=== PATIENT | female | born 1985 | race Caucasian/White ===

== ENCOUNTER 2016-10-01 15:02 | Emergency (ER) | payer OTHER ==
--- NOTE | 2016-10-01 15:21 | UC ---
Throat Pain/Nasal Brock HPI - HPI Summary HPI Summary: 31 year old female presents with complains of sinus pressure, congestion and sore throat - History of Current Complaint Stated Complaint: SORE THROAT,[place] GL[place]S,SINUS PRESSURE Time Seen by Provider: 10/01/16 15:21 Hx Last Menstrual Period: 08/24/14 - Allergies/Home Medications Allergies/Adverse Reactions: Allergies Allergy/AdvReac Type Severity Reaction Status Date / Time No Known Allergies Allergy Verified 10/01/16 15:23 PMH/Surg Hx/FS Hx/Imm Hx - Surgical History Surgical History: None - Social History Alcohol Use: None Substance Use Type: None Smoking Status (MU): Light Every Day Tobacco Smoker Type: Cigarettes Amount Used/How Often: 5 cigarettes daily Household Exposure Type: Cigarettes Review of Systems Constitutional: Negative Skin: Negative Eyes: Negative ENT: Sore Throat, Nasal Discharge, Sinus Congestion, Sinus Pain/Tenderness Respiratory: Negative Cardiovascular: Negative Gastrointestinal: Negative Genitourinary: Negative Motor: Negative Neurovascular: Negative Musculoskeletal: Negative Neurological: Negative Psychological: Negative All Other Systems Reviewed And Are Negative: Yes Physical Exam Triage Information Reviewed: Yes Eye Exam: Normal ENT Exam: Normal ENT: Positive: Pharyngeal erythema, Nasal congestion, Nasal drainage Dental Exam: Normal Neck exam: Normal Neck: Positive: 1 Respiratory Exam: Normal Cardiovascular Exam: Normal Abdominal Exam: Normal Musculoskeletal Exam: Normal Neurological Exam: Normal Psychological Exam: Normal Skin Exam: Normal Throat Pain/Nasal Course/Dx - Differential Dx/Diagnosis Provider Diagnoses: sinusitis Discharge - Discharge Plan Condition: Stable Disposition: HOME Prescriptions: Amoxicillin CAP* [Amoxicillin 500 MG CAP*] 500 mg PO TID #30 cap LoraTADine TAB(NF) [Claritin 10 MG TAB(NF)] 10 mg PO DAILY #30 tab Magic M W2 Alcon/Maal/Nyst/Lido* 15 ml SWISH SPIT QID #120 ml Patient Education Materials: Pharyngitis (ED), Sinusitis (ED) Referrals: Alayna Aquino PA [Primary Care Provider] - If Needed
[2016-10-01 15:25] VITALS: BP 127/57
== END 2016-10-01 15:47 | disposition home or self-care (01) ==
LOC: UCCORT 15:02
DX: J32.9 Chronic sinusitis, unspecified (principal)
CPT/HCPCS: 87651; 99212; G0463

== ENCOUNTER 2016-10-22 12:07 | Emergency (ER) | payer OTHER ==
[2016-10-22 12:35] VITALS: BP 118/62
[2016-10-22] MEDS ORDERED: Azithromycin TAB* 250 MG PO ONE (13:32)
[2016-10-22] MEDS ORDERED: cefTRIAXone VIAL(*) 250 MG VIAL IM ONE (13:33)
--- NOTE | 2016-10-22 13:39 | UC ---
Abdominal Pain Female HPI - HPI Summary HPI Summary: 31 y/o female with c/o- - multiple month h/o intermittent nausea/ vomiting, loose stools. intermittent symptoms with several days of normal BMs, no N/V. Patient has appointment to see GI physician in 2 days and is being worked up for GB disease. no fever, chills. + bloating/ abdominal pressure dark stools - recently found out boyfriend was cheating on her- would like HIV testing as well as STD treatment - increased vaginal discharge- changes between watery/ thick or sometimes minimal amounts. No itchy/ burning urination. No pain. recent ABX use ~ 2 weeks ago - History of Current Complaint Chief Complaint: UCAbdominalPain Stated Complaint: ABD PAIN,NAUSEA Time Seen by Provider: 10/22/16 12:19 Hx Obtained From: Patient Hx Last Menstrual Period: 10/08/16 Onset/Duration: Lasting Weeks Severity Initially: Mild Severity Currently: Mild Pain Scale Used: 0-10 Numeric Location: Diffuse - abdominal pain Aggravating Factor(s): Nothing Alleviating Factor(s): Nothing Associated Signs and Symptoms: Positive: Vaginal Discharge, Nausea, Vomiting, Diarrhea Allergies/Adverse Reactions: Allergies Allergy/AdvReac Type Severity Reaction Status Date / Time No Known Allergies Allergy Verified 10/22/16 12:15 PMH/Surg Hx/FS Hx/Imm Hx Previously Healthy: Yes - Surgical History Surgical History: None - Social History Alcohol Use: None Substance Use Type: Marijuana Substance Use Comment - Amount & Last Used: Daily Smoking Status (MU): Light Every Day Tobacco Smoker Type: Cigarettes Amount Used/How Often: 10 cigarettes daily Household Exposure Type: Cigarettes - Immunization History Most Recent Influenza Vaccination: NONE 2015 Most Recent Tetanus Shot: UTD Review of Systems Constitutional: Negative Skin: Negative Eyes: Negative ENT: Negative Respiratory: Negative Cardiovascular: Negative Gastrointestinal: Abdominal Pain, Vomiting, Diarrhea, Nausea Genitourinary: Negative Motor: Negative Neurovascular: Negative Musculoskeletal: Negative Neurological: Negative Psychological: Negative All Other Systems Reviewed And Are Negative: Yes Physical Exam Triage Information Reviewed: Yes Appearance: Well-Appearing, No Pain Distress, Well-Nourished Vital Signs: Initial Vital Signs Temp 98.5 F 10/22/16 12:15 Pulse 62 10/22/16 12:15 Resp 18 10/22/16 12:15 BP 118/62 10/22/16 12:15 Pulse Ox 99 08/01/17 12:15 Abdomen Description: Positive: No Organomegaly, Soft, Other: - diffusely tender Musculoskeletal Exam: Normal Neurological Exam: Normal Psychological Exam: Normal Skin Exam: Normal - Additional Comments vaginal examination- normal external genetalia, large amount of white/ clear muscous discharge with mild odor, no cervical motion tenderness, redness. no adnexa tenderness b/l, no LAD Abd Pain Female Course/Dx - Course Course Of Treatment: ceftriaxone, azithromycin given for STD prophylaxis, STD testing obtained during exam, HIV bloodwork taken, UA negative. Conitnue follow up with GI physician. hem occult neg - Differential Dx/Diagnosis Differential Diagnosis: Diverticulitis Provider Diagnoses: bacterial vaginosis Discharge - Discharge Plan Condition: Good Disposition: HOME Prescriptions: Fluconazole [Fluconazole 150 mg tab] 150 mg PO ONCE #1 tab Metronidazole [Flagyl 500 MG TAB] 500 mg PO BID #14 tab Patient Education Materials: Bacterial Vaginosis (ED), Sexually Transmitted Diseases (ED) Referrals: Alayna Aquino PA [Primary Care Provider] - Additional Instructions: - STD medication given at visit - Metronidazole for bacterial vaginosis as prescribed - Follow up within 2-3 days for testing results - Keep appointment with GI physician for Nausea/ vomiting, possible gallbladder disease
[2016-10-22] MEDS ORDERED: Lidocaine 1% MPF* 2 ML VIAL ONE (13:45)
== END 2016-10-22 14:20 | disposition home or self-care (01) ==
LOC: UCCORT 12:07
DX: N76.0 Acute vaginitis (principal); R11.2 Nausea with vomiting, unspecified; R19.7 Diarrhea, unspecified; Z11.4 Encounter for screening for human immunodeficiency virus [HIV]; F12.90 Cannabis use, unspecified, uncomplicated; F17.210 Nicotine dependence, cigarettes, uncomplicated
CPT/HCPCS: 36415; 81003; 82270; 86703; 87480; 87491; 87510; 87591; 96372; 99212; A9270-GY; G0463; J0696

== ENCOUNTER 2017-02-17 19:48 | Emergency (ER) | payer SELFPAY ==
--- NOTE | 2017-02-17 20:25 | UC ---
Throat Pain/Nasal Brock HPI - HPI Summary HPI Summary: 32 year old female who is 16 weeks presents with pharyngitis. - History of Current Complaint Stated Complaint: EAR PAIN, SORE THROAT Time Seen by Provider: 02/17/17 20:24 Hx Obtained From: Patient Hx Last Menstrual Period: 10/08/16 Onset/Duration: Sudden Onset Severity: Moderate - Allergies/Home Medications Allergies/Adverse Reactions: Allergies Allergy/AdvReac Type Severity Reaction Status Date / Time No Known Allergies Allergy Verified 02/17/17 20:33 PMH/Surg Hx/FS Hx/Imm Hx Previously Healthy: Yes - Surgical History Surgical History: None - Social History Alcohol Use: None Substance Use Type: Marijuana Substance Use Comment - Amount & Last Used: Daily Smoking Status (MU): Light Every Day Tobacco Smoker Type: Cigarettes Amount Used/How Often: 10 cigarettes daily Household Exposure Type: Cigarettes - Immunization History Most Recent Influenza Vaccination: NONE 2015 Most Recent Tetanus Shot: UTD Review of Systems Constitutional: Negative Skin: Negative Eyes: Negative ENT: Sore Throat, Nasal Discharge, Sinus Congestion, Sinus Pain/Tenderness Respiratory: Negative Cardiovascular: Negative Gastrointestinal: Negative Genitourinary: Negative Motor: Negative Neurovascular: Negative Musculoskeletal: Negative Neurological: Negative Psychological: Negative All Other Systems Reviewed And Are Negative: Yes Physical Exam Triage Information Reviewed: Yes Vital Signs Reviewed: Yes Eye Exam: Normal ENT: Positive: Pharyngeal erythema, Nasal congestion, Nasal drainage, Tonsillar swelling, Sinus tenderness Dental Exam: Normal Neck exam: Normal Neck: Positive: 1 Respiratory Exam: Normal Cardiovascular Exam: Normal Abdominal Exam: Normal Musculoskeletal Exam: Normal Neurological Exam: Normal Psychological Exam: Normal Skin Exam: Normal Throat Pain/Nasal Course/Dx - Differential Dx/Diagnosis Provider Diagnoses: allergic rhinitis. pharyngitis Discharge - Discharge Plan Condition: Stable Disposition: HOME Prescriptions: Amoxicillin PO (*) [Amoxicillin 500 MG CAP*] 500 mg PO TID #21 cap Patient Education Materials: Allergic Rhinitis (ED) Forms: *Work Release Referrals: Alayna Aquino PA [Primary Care Provider] -
[2017-02-17 20:33] VITALS: BP 115/54
== END 2017-02-17 21:00 | disposition home or self-care (01) ==
LOC: UCCORT 19:48
DX: O26.892 Other specified pregnancy related conditions, second trimester (principal); Z3A.16 16 weeks gestation of pregnancy; J00 Acute nasopharyngitis [common cold]; J30.9 Allergic rhinitis, unspecified; F12.90 Cannabis use, unspecified, uncomplicated; F17.210 Nicotine dependence, cigarettes, uncomplicated
CPT/HCPCS: 87651; 99212; G0463